=== PATIENT | male | born 2000 | race Caucasian/White ===

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

== ENCOUNTER 2022-04-04 08:25 | Emergency (ER) | payer OTHER ==
[~2022-04-04] VITALS: Ht 170.1 cm; Wt 132.4 kg
[2022-04-04] MEDS ORDERED: VRAYLAR1.5 MG PO (08:38)
[2022-04-04] MEDS ORDERED: GUANFACINE HCL1 M1 PO (08:38)
[2022-04-04] MEDS ORDERED: IBU800 M2 PO (11:13)
== END 2022-04-04 11:42 | disposition home or self-care (01) ==
LOC: ED 08:25
DX: G43.909 Migraine, unspecified, not intractable, without status migrainosus (principal); Z20.822 Contact with and (suspected) exposure to COVID-19; Z79.899 Other long term (current) drug therapy

== ENCOUNTER 2025-02-02 21:52 | Emergency (ER) | payer OTHER ==
[~2025-02-02] VITALS: Ht 170.1 cm; Wt 145.1 kg
[~2025-02-02 21:52] MED LIST changes: +GUANFACINE HCL1 M1 PO; +IBU800 M2 PO; +VRAYLAR1.5 MG PO
[2025-02-03] MEDS ORDERED: PREDNISONE20 M1 PO (00:49)
[2025-02-03] MEDS ORDERED: ZITHROMAX250 MG PO (00:49)
== END 2025-02-03 01:43 | disposition home or self-care (01) ==
LOC: ED 21:52
DX: B34.9 Viral infection, unspecified (principal); R51.9 Headache, unspecified; R19.7 Diarrhea, unspecified; Z20.822 Contact with and (suspected) exposure to COVID-19

== ENCOUNTER → 2025-02-12 | Outpatient (CLI) | payer OTHER ==
[~2025-02-12] MED LIST changes: +PREDNISONE20 M1 PO; +ZITHROMAX250 MG PO
[2025-02-12 10:03] LABS: BASO # 0.1 10*3/uL (0.0-0.1); BASO % 0.5 % (0.0-1.0); BILIRUBIN Negative (Negative); BLOOD Negative (Negative); CLARITY Clear (Clear); COLOR Yellow (Yellow); EOS # 0.1 10*3/uL (0.0-0.4); EOS % 0.9 % (1.0-4.0); KETONE Negative (Negative); LEUKO ESTERASE Negative (Negative); MEAN CELL VOLUME 83.7 fl (80.0-94.0); MEAN CORPUSCULAR HGB 27.0 pg (27.0-31.0); MEAN PLATELET VOLUME 9.5 fl (9.6-12.3); MONO # 0.7 10*3/uL (0.1-1.0); MONO % 6.0 % (3.0-9.0); NEUT # 7.5 10*3/uL (2.3-7.9); NEUT % 68.5 % (47.0-73.0); NITRITE Negative (Negative); NUCLEATED RED BLOOD CELL 0.0 % (0.0-0.0); NUCLEATED RED BLOOD CELL 0.0 10*3/uL (0.0-0.0); PH 7.0 (4.5-8.0); PLATELET COUNT AUTOMATED 345 10*3/uL (130-400); RED CELL DISTRI WIDTH 12.8 % (0-14.5); RETICULOCYTE % 1.96 % (0.50-2.50); SPECIFIC GRAVITY 1.025 (1.001-1.030); UROBILINOGEN 0.2 E.U./dl (0.0-1.0)
[2025-02-12 10:14] LABS: BACTERIA TRACE; EPITHELIAL CELLS 0-2; MUCOUS TRACE
[2025-02-12 10:28] LABS: BUN 9 mg/dl (9-23); GAMMA GLUTAMYL TRANSFERASE 40 U/L (0-73); LDL CHOLESTEROL 109 mg/dL (9-159); SGPT/ALT 26 U/L (5-49); T3 UPTAKE 35.2 % (22.4-36.7); THYROXINE (T4) TOTAL 8.1 ug/dl (4.5-10.9)
[2025-02-12 11:12] LABS: VITAMIN D, 25-HYDROXY 25.2 ng/mL (30-100)
[2025-02-14 17:07] LABS: ANTI-DSDNA ANTIBODIES <1 IU/mL (0-9)
== END | disposition home or self-care (01) ==
LOC: LAB 09:37
PROVIDERS: ATTEND Family Medicine
DX: E55.9 Vitamin D deficiency, unspecified (principal); R79.89 Other specified abnormal findings of blood chemistry; R53.83 Other fatigue; E78.5 Hyperlipidemia, unspecified

== ENCOUNTER → 2025-02-24 | Outpatient (CLI) | payer OTHER | END | disposition home or self-care (01) | LOC: CARDIO 09:54 → CARD 09:54 | PROVIDERS: ATTEND Family Medicine | DX: Z51.81 Encounter for therapeutic drug level monitoring (principal) ==